=== PATIENT | female | born 1990 | race Caucasian/White ===

== ENCOUNTER 2018-06-22 16:23 | Emergency (ER) | payer OTHER ==
[~2018-06-22] VITALS: Ht 165.1 cm; Wt 55.8 kg
[2018-06-22] MEDS ORDERED: SYNTHROID200 MCG (16:35)
[2018-06-22] MEDS ORDERED: PNEU16DI2 (16:35)
[2018-06-22] MEDS ORDERED: TILENOR (16:35)
== END 2018-06-22 19:37 | disposition home or self-care (01) ==
LOC: ER 16:23
DX: J09.X2 Influenza due to identified novel influenza A virus with other respiratory manifestations (principal); B34.9 Viral infection, unspecified